=== PATIENT | female | born 1960 | race Caucasian/White ===

== ENCOUNTER → 2017-01-10 | Day surgery (SDC) | payer BC ==
[~2017-01-10] VITALS: Ht 170.2 cm; Wt 63.0 kg
[~2017-01-10] MED LIST: ASCA500 PO; B-COCAP2 PO; BLACK COHASH PO; CHOL100027 PO; CHOL2000 PO; FISHOIL PO; FLUT50SP14 NAE; IODINE PO; LINA1CAP2 PO; LINA72CA; MAGN1SOL7 PO; MELA3TAB7 PO; MULTTAB58 PO; ZINC PO; calcium PO; selenium PO; tumeric PO
[2017-01-10 08:51] VITALS: BP 111/75; PULSE 70; TEMP 36.4; O2SAT 99; Ht 170.2 cm; Wt 63.0 kg
[2017-01-10 12:01] VITALS: BP 108/71; PULSE 64; O2SAT 98
--- NOTE | 2017-02-16 16:21 | Procedure Note ---
Breath Hydrogen Test Interpretation Assessment: Patient presented to the [facility] for Lactulose breath test secondary to abdominal pain. Lactulose breath test was negative for Small intestinal bacterial overgrowth. Plan: Recommend patient followup with ordering physician for further evaluation and recommendations.
== END | disposition home or self-care (01) ==
LOC: C.MTU 08:28
PROVIDERS: ATTEND Internal Medicine Gastroenterology
DX: R10.9 Unspecified abdominal pain (principal)